=== PATIENT | male | born 1950 | race African-American/Black ===

== ENCOUNTER 2017-08-16 09:26 | Observation (INO) | payer MEDICARE, MEDICAID ==
[~2017-08-16] VITALS: Ht 195.6 cm; Wt 113.5 kg
[~2017-08-16 09:26] MED LIST: ASPI81TA81 PO; CARD240C6 PO; GLUCTAB PO; IBUP-232 PO; PALI1INJ IM; VASE1025 PO; ZOCO40TA PO; [UNRECOGNIZED DRUG - OTHER]
[2017-08-16 09:30] VITALS: BP 193/93; PULSE 90; RESP 16; TEMP 98.4; O2SAT 97
[2017-08-16] MEDS ORDERED: LORazepam 1 MG TAB PO ONE (09:45)
[2017-08-16] MEDS ORDERED: HALOPERIDOL 10 MG TAB PO ONE (09:45)
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
[2017-08-16 10:05] LABS: AUTOMATED NEUTROPHIL # 4.5 TH/MM3 (1.8-7.7); BASOPHIL % 0.3 % (0.0-2.0); EOSINOPHIL % 0.7 % (0.0-4.0); HEMATOCRIT 36.6 % (39.0-51.0); HEMOGLOBIN 12.6 GM/DL (13.0-17.0); LYMPH % 13.6 % (9.0-44.0); LYMPHOCYTE # 0.8 TH/MM3 (1.0-4.8); MEAN CELL VOLUME 92.5 FL (80.0-100.0); MEAN CORPUSCULAR HEMOGLOBIN 31.9 PG (27.0-34.0); MEAN CORPUSCULAR HGB CONC 34.5 % (32.0-36.0); MEAN PLATELET VOLUME 6.6 FL (7.0-11.0); MONO % 8.9 % (0.0-8.0); MONOCYTE # 0.5 TH/MM3 (0-0.9); NEUT % 76.5 % (16.0-70.0); PLATELET COUNT 304 TH/MM3 (150-450); RED BLOOD COUNT 3.96 MIL/MM3 (4.50-5.90); RED CELL DISTRIBUTION WIDTH 13.4 % (11.6-17.2); WHITE BLOOD COUNT 5.9 TH/MM3 (4.0-11.0)
[2017-08-16 10:10] VITALS: BP 131/67; PULSE 119
[2017-08-16 10:12] VITALS: BP 166/90; PULSE 118
[2017-08-16 10:21] LABS: ALBUMIN 3.9 GM/DL (3.4-5.0); AST (GOT) 139 U/L (15-37); BICARBONATE 25.6 MEQ/L (21.0-32.0); BLOOD UREA NITROGEN 13 MG/DL (7-18); CALCIUM 9.1 MG/DL (8.5-10.1); CHLORIDE 90 MEQ/L (98-107); CREATININE 1.04 MG/DL (0.60-1.30); GLOMERULAR FILTRATION RATE 86 ML/MIN (>89); GLUCOSE,RANDOM 126 MG/DL (74-106); SODIUM (NA) 125 MEQ/L (136-145)
[2017-08-16 10:22] LABS: ALT (GPT) 55 U/L (12-78)
[2017-08-16 10:24] LABS: ALKALINE PHOSPHATASE 80 U/L (45-117); TOTAL BILIRUBIN ADULT 0.7 MG/DL (0.2-1.0); TOTAL PROTEIN 7.6 GM/DL (6.4-8.2)
[2017-08-16] MEDS ORDERED: SODIUM CHLOR 0.9% 1000 ML INJ 1,000 ML IV SCH (11:02)
--- NOTE | 2017-08-16 11:07 | PD ---
Physical Exam Date Seen by Provider: Aug 16, 2017 Time Seen by Provider: 11:00 Narrative This patient presents voluntarily for treatment of psychiatric problems. He has a history of paranoid schizophrenia. He is hearing voices. Data Data Last Documented VS Vital Signs Date Time Temp Pulse Resp B/P (MAP) Pulse Ox O2 Delivery O2 Flow Rate FiO2 08/16/17 10:12 118 166/90 (115) 08/16/17 09:30 98.4 16 97 Orders Orders Complete Blood Count With Diff (08/16/17 09:37) Comprehensive Metabolic Panel (08/16/17 09:37) Psych Screen (08/16/17 09:37) Drug Screen, Random Urine (08/16/17 09:37) Alcohol (Ethanol) (08/16/17 09:37) Lorazepam (Ativan) (08/16/17 09:45) Haloperidol (Haldol) (08/16/17 09:45) Electrocardiogram (08/16/17 ) Diet Regular Basic (08/16/17 Lunch) Iv Access Insert/Monitor (08/16/17 11:02) Ecg Monitoring (08/16/17 11:02) Oximetry (08/16/17 11:02) Sodium Chlor 0.9% 1000 Ml Inj (Ns 1000 M (08/16/17 11:02) Sodium Chloride 0.9% Flush (Ns Flush) (08/16/17 11:15) Labs Laboratory Tests Test 08/16/17 09:45 White Blood Count 5.9 TH/MM3 Red Blood Count 3.96 MIL/MM3 Hemoglobin 12.6 GM/DL Hematocrit 36.6 % Mean Corpuscular Volume 92.5 FL Mean Corpuscular Hemoglobin 31.9 PG Mean Corpuscular Hemoglobin Concent 34.5 % Red Cell Distribution Width 13.4 % Platelet Count 304 TH/MM3 Mean Platelet Volume 6.6 FL Neutrophils (%) (Auto) 76.5 % Lymphocytes (%) (Auto) 13.6 % Monocytes (%) (Auto) 8.9 % Eosinophils (%) (Auto) 0.7 % Basophils (%) (Auto) 0.3 % Neutrophils # (Auto) 4.5 TH/MM3 Lymphocytes # (Auto) 0.8 TH/MM3 Monocytes # (Auto) 0.5 TH/MM3 Eosinophils # (Auto) 0.0 TH/MM3 Basophils # (Auto) 0.0 TH/MM3 CBC Comment DIFF FINAL Differential Comment Blood Urea Nitrogen 13 MG/DL Creatinine 1.04 MG/DL Random Glucose 126 MG/DL Total Protein 7.6 GM/DL Albumin 3.9 GM/DL Calcium Level 9.1 MG/DL Alkaline Phosphatase 80 U/L Aspartate Amino Transf (AST/SGOT) 139 U/L Alanine Aminotransferase (ALT/SGPT) 55 U/L Total Bilirubin 0.7 MG/DL Sodium Level 125 MEQ/L Potassium Level 4.4 MEQ/L Chloride Level 90 MEQ/L Carbon Dioxide Level 25.6 MEQ/L Anion Gap 9 MEQ/L Estimat Glomerular Filtration Rate 86 ML/MIN Ethyl Alcohol Level LESS THAN 3 MG/DL MDM Supervised Visit with PATRICIA: Yes Narrative Course I, Dr. Cardenas, have reviewed the advance practice practitioner's documentation and am in agreement, met with the patient face to face, made the diagnosis, and the medical decision making was done by me. *My assessment and Findings: This patient has been singing various songs. He does not appear to be in any distress. Unfortunately, he is hyponatremic which precludes him from being cleared medically for psychiatric evaluation. CBC & BMP Diagram 08/16/17 09:45 Total Protein 7.6, Albumin 3.9, Calcium Level 9.1, Alkaline Phosphatase 80, Aspartate Amino Transf (AST/SGOT) 139 H, Alanine Aminotransferase (ALT/SGPT) 55 , Total Bilirubin 0.7 Please see Kannan Dockery PA-C's note for results of laboratory and radiographic evaluation, ED course, final diagnosis and disposition Condition: Stable Mary Beth Cardenas MD Aug 16, 2017 11:07
[2017-08-16] MEDS ORDERED: SODIUM CHLORIDE 0.9% FLUSH 10 ML FLUSH IV FLUSH PRN ×2 (11:15→12:30)
[2017-08-16] MEDS ORDERED: ENALAPRIL HYDROCHLOROTHIAZIDE PO SCH (12:15)
[2017-08-16] MEDS ORDERED: cloNIDine HCL 0.1 MG TAB PO PRN (12:30)
[2017-08-16] MEDS ORDERED: NALOXONE HCL 0.4 MG/ML AMP IV PUSH PRN (12:30)
[2017-08-16] MEDS ORDERED: ACETAMINOPHEN 325 MG TAB PO PRN ×2 (12:30)
[2017-08-16] MEDS ORDERED: GLUCAGON 1 MG/ML VIAL OTHER PRN (12:45)
[2017-08-16] MEDS ORDERED: DEXTROSE 50% IN WATER 50 ML VIAL(D50) IV PUSH PRN (12:45)
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
[2017-08-16] MEDS: DILTIAZEM-CD 240 MG CAP ER PO SCH (13:52)
[2017-08-16] MEDS: ENALAPRIL MALEATE 10 MG TAB PO SCH (13:54)
--- NOTE | 2017-08-16 14:32 | EKG ---
Date Performed: 08/16/2017 Time Performed: 10:10:26 PTAGE: 67 years EKG: Sinus rhythm POSSIBLE LEFT ATRIAL ENLARGEMENT NONSPECIFIC T-WAVE ABNORMALITY BORDERLINE ECG Compared to PREVIOUS TRACING , sinus rate has slowed. PREVIOUS TRACIN02/26/2008 22.07 DOCTOR: Brian Coats Interpretating Date/Time 08/16/2017 14:31:07
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
[2017-08-16 16:13] VITALS: BP 128/63; PULSE 68; RESP 18; TEMP 98.3; O2SAT 95
[2017-08-16] MEDS: INSULIN ASPART SUPPLEMENTAL SCALE SQ SCH ×2 (17:00→20:34)
[2017-08-16 20:30] VITALS: BP 141/67; PULSE 91; RESP 18; O2SAT 95
[2017-08-16] MEDS: SODIUM CHLORIDE 0.9% FLUSH 10 ML FLUSH IV FLUSH SCH (20:34)
[2017-08-16] MEDS ORDERED: PRAVASTATIN SOD 80 MG TAB PO SCH (21:00)
[2017-08-16] MEDS ORDERED: LORazepam 2 MG TAB PO ONE (23:45)
[2017-08-17 06:44] VITALS: BP 152/80; PULSE 79; RESP 16; TEMP 98.1; O2SAT 96
[2017-08-17] MEDS: INSULIN ASPART SUPPLEMENTAL SCALE SQ SCH ×2 (08:00→12:00)
[2017-08-17] MEDS: DILTIAZEM-CD 240 MG CAP ER PO SCH (08:47)
[2017-08-17] MEDS: ENALAPRIL MALEATE 10 MG TAB PO SCH (08:47)
[2017-08-17] MEDS: SODIUM CHLORIDE 0.9% FLUSH 10 ML FLUSH IV FLUSH SCH (08:48)
[2017-08-17] MEDS ORDERED: DILTIAZEM-CD 240 MG CAP ER PO SCH (09:00)
[2017-08-17] MEDS ORDERED: ASPIRIN EC 81 MG TABEC PO SCH (09:00)
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
--- NOTE | 2017-08-17 09:15 | HHI.DCPOC ---
Discharge Care Plan Diagnosis: (1) Hyponatremia (2) Psychosis (3) Hypertension (4) Schizophrenia Goals to Promote Your Health * To prevent worsening of your condition and complications * To maintain your health at the optimal level Directions to Meet Your Goals Take your medications as prescribed Follow your dietary instruction Follow activity as directed Keep your appointments as scheduled Take your immunizations and boosters as scheduled If your symptoms worsen call your PCP, if no PCP go to Urgent Care Center or Emergency Room Smoking is Dangerous to Your Health. Avoid second hand smoke Call the 24-hour hour crisis hotline for domestic abuse at Talisha Lenz Aug 17, 2017 09:15
[2017-08-17] MEDS ORDERED: NICOTINE 21 MG/24 HR PATCH T-DERMAL SCH (09:30)
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
[2017-08-17] MEDS ORDERED: HALOPERIDOL LACTATE 5 MG/ML AMP IV PUSH ONE (09:45)
--- NOTE | 2017-08-17 11:42 | HHI.PYPN ---
Subjective Remarks Patient was seen today for psychiatric reevaluation. Chart review. Case was discussed with nurse in charge and also with Dr. Cox. On psychiatric evaluation the patient is agitated, naked from waist up, requesting to leave the hospital "because you're not my doctor in I need to go to [facility]". Patient is very disorganized, he seems to be guarded and paranoid, with James loosening of associations, but he was able to respond to verbal de-escalation. As per nurse in charge, the patient last night had to be medicated because he was very paranoid, wanting to leave the hospital, became aggressive and was threatening to go to others patient is room. Review of Systems Psychiatric: COMPLAINS OF: Confusion, Delusions Except as stated in HPI: all other systems reviewed are Neg Mental Status Examination Appearance: Appropriate Consciousness: Alert Orientation: x4 Motor Activity: Normal gait Speech: Unremarkable Language: Adequate Fund of Knowledge: Adequate Attention and Concentration: Adequate Memory: Unremarkable Mood: Angry Affect: Flat Thought Process & Associations: Loose associations Thought Content: Bizarre thinking, Hallucinations Hallucination Type: Auditory, Visual Delusion Type: None Suicidal Ideation: No Suicidal Plan: No Suicidal Intention: No Homicidal Ideation: No Homicidal Plan: No Homicidal Intention: No Insight: Poor Judgment: Poor Results Vitals/IOs Vital Signs Date Time Temp Pulse Resp B/P (MAP) Pulse Ox O2 Delivery O2 Flow Rate FiO2 08/17/17 06:44 98.1 79 16 152/80 (104) 96 Intake and Output 08/17/17 08/17/17 08/18/17 08:00 16:00 00:00 Intake Total 472 ml Balance 472 ml Assessment & Plan Problem List: (1) Schizophrenia ICD Codes: F20.9 - Schizophrenia, unspecified Assessment & Plan: Patient will be admitted in psychiatry for stabilization and safety. Collateral information is is still pending. We'll start Invega 3 mg daily. Will order Haldol 5 mg IM every 8 hours when necessary aggressive behavior and agitation Assessment & Plan Estimated LOS: days Justification for Cont. Inpt. Patient is acutely psychotic Rickie Batista MD Aug 17, 2017 11:42
[2017-08-17] MEDS ORDERED: HALOPERIDOL LACTATE 5 MG/ML AMP IM PRN (11:45)
[2017-08-17 11:52] LABS: AUTOMATED NEUTROPHIL # 3.5 TH/MM3 (1.8-7.7); BASOPHIL % 0.7 % (0.0-2.0); EOSINOPHIL # 0.2 TH/MM3 (0-0.4); EOSINOPHIL % 2.9 % (0.0-4.0); HEMOGLOBIN 11.6 GM/DL (13.0-17.0); LYMPH % 18.1 % (9.0-44.0); LYMPHOCYTE # 0.9 TH/MM3 (1.0-4.8); MEAN CELL VOLUME 92.7 FL (80.0-100.0); MEAN CORPUSCULAR HEMOGLOBIN 31.7 PG (27.0-34.0); MEAN CORPUSCULAR HGB CONC 34.2 % (32.0-36.0); MEAN PLATELET VOLUME 6.4 FL (7.0-11.0); MONO % 10.5 % (0.0-8.0); MONOCYTE # 0.5 TH/MM3 (0-0.9); NEUT % 67.8 % (16.0-70.0); PLATELET COUNT 279 TH/MM3 (150-450); RED BLOOD COUNT 3.67 MIL/MM3 (4.50-5.90); RED CELL DISTRIBUTION WIDTH 13.2 % (11.6-17.2); WHITE BLOOD COUNT 5.2 TH/MM3 (4.0-11.0)
[2017-08-17 12:22] LABS: ALBUMIN 3.4 GM/DL (3.4-5.0); AST (GOT) 120 U/L (15-37); BICARBONATE 27.1 MEQ/L (21.0-32.0); BLOOD UREA NITROGEN 10 MG/DL (7-18); CALCIUM 8.7 MG/DL (8.5-10.1); CHLORIDE 99 MEQ/L (98-107); CREATININE 0.97 MG/DL (0.60-1.30); GLOMERULAR FILTRATION RATE 94 ML/MIN (>89); GLUCOSE,RANDOM 145 MG/DL (74-106); SODIUM (NA) 131 MEQ/L (136-145)
[2017-08-17 12:23] LABS: ALT (GPT) 52 U/L (12-78)
[2017-08-17 12:25] LABS: ALKALINE PHOSPHATASE 74 U/L (45-117); TOTAL BILIRUBIN ADULT 0.4 MG/DL (0.2-1.0); TOTAL PROTEIN 6.8 GM/DL (6.4-8.2)
[2017-08-18] MEDS ORDERED: PALIPERIDONE ER 3 MG TAB PO SCH (09:00)
[2017-08-18] MEDS ORDERED: REMOVE OLD PATCH T-DERMAL SCH (09:00)
== END 2017-08-17 14:30 ==
LOC: NEPD 09:26 → NEDA 11:39 → NEPHCDU 13:09 → H270 08-17 14:20
PROVIDERS: ADMIT Hospitalist; ATTEND Psychiatry & Neurology Psychiatry
DX: F20.0 Paranoid schizophrenia (principal); E87.1 Hypo-osmolality and hyponatremia; I10 Essential (primary) hypertension; E78.5 Hyperlipidemia, unspecified; F17.210 Nicotine dependence, cigarettes, uncomplicated; E11.9 Type 2 diabetes mellitus without complications; E66.9 Obesity, unspecified; Z79.84 Long term (current) use of oral hypoglycemic drugs; R74.0 Nonspecific elevation of levels of transaminase and lactic acid dehydrogenase [LDH]; F31.9 Bipolar disorder, unspecified; Z79.899 Other long term (current) drug therapy; D64.9 Anemia, unspecified; R94.31 Abnormal electrocardiogram [ECG] [EKG]
CPT/HCPCS: 80053; 80307; 82948; 85025; 93005; 96361; 96374; 99285; G0378; J1630; J7030

== ENCOUNTER 2017-08-17 14:58 | Inpatient (IN) | payer OTHER, MEDICARE ==
[~2017-08-17] VITALS: Ht 185.4 cm; Wt 119.6 kg
[2017-08-17 14:25] VITALS: BP 147/70; PULSE 80; RESP 20; TEMP 98; O2SAT 100
[2017-08-17] MEDS: DILTIAZEM-CD 240 MG CAP ER PO SCH (17:00)
[2017-08-17] MEDS: ASPIRIN EC 81 MG TABEC PO SCH (17:00)
[2017-08-17] MEDS ORDERED: LORazepam 0.5 MG TAB PO PRN (17:15)
[2017-08-17] MEDS ORDERED: ALUMINUM/MAGNESIUM/SIMETH 30 ML CUP PO PRN (17:15)
[2017-08-17] MEDS ORDERED: ACETAMINOPHEN 325 MG TAB PO PRN (17:15)
[2017-08-17] MEDS ORDERED: LORazepam 2 MG/ML VIAL IM PRN ×2 (17:15)
[2017-08-17] MEDS ORDERED: MAGNESIUM HYDROXIDE SUSP 30 ML CUP PO PRN (17:15)
[2017-08-17 18:14] VITALS: BP 117/78; PULSE 80; RESP 16; TEMP 99.1; O2SAT 96
[2017-08-17] MEDS: metFORMIN HCL 500 MG TAB PO SCH (20:07)
[2017-08-17] MEDS: LORazepam 1 MG TAB PO PRN (22:59)
[2017-08-18 05:48] VITALS: BP 175/81; PULSE 81; RESP 17; TEMP 98.1; O2SAT 95
[2017-08-18] MEDS: metFORMIN HCL 500 MG TAB PO SCH ×2 (08:26→20:39)
[2017-08-18] MEDS: ENALAPRIL MALEATE 5 MG TAB PO SCH (08:26)
[2017-08-18] MEDS: ASPIRIN EC 81 MG TABEC PO SCH (08:26)
[2017-08-18] MEDS: DILTIAZEM-CD 240 MG CAP ER PO SCH (08:26)
[2017-08-18] MEDS: NICOTINE 21 MG/24 HR PATCH T-DERMAL SCH (08:27)
[2017-08-18] MEDS ORDERED: HYDROCHLOROTHIAZIDE 25 MG TAB PO SCH (09:00)
[2017-08-18 10:52] LABS: BICARBONATE 27.4 MEQ/L (21.0-32.0); BLOOD UREA NITROGEN 8 MG/DL (7-18); CALCIUM 8.9 MG/DL (8.5-10.1); CHLORIDE 99 MEQ/L (98-107); CHOLESTEROL 141 MG/DL (120-200); CHOLESTEROL/ HDL RATIO 3.17 RATIO; CREATININE 1.02 MG/DL (0.60-1.30); GLOMERULAR FILTRATION RATE 88 ML/MIN (>89); GLUCOSE,RANDOM 157 MG/DL (74-106); HDL CHOLESTEROL 44.4 MG/DL (40.0-60.0); LDL CHOLESTEROL 79 MG/DL (0-99); SODIUM (NA) 132 MEQ/L (136-145); TRIGLYCERIDES 90 MG/DL (42-150)
[2017-08-18] MEDS ORDERED: hydrOXYzine HCL 50 MG TAB PO PRN (14:30)
--- NOTE | 2017-08-18 14:45 | HHI.HP ---
Provisional Diagnosis Admission Date Aug 17, 2017 at 14:58 [place]. Schizophrenia chronic paranoid type F 20.0 Certification of Person's Competence To Provide Express and Informed Consent I have personally examined Minesh Duron , a person being served at [facility] on, Aug 18, 2017 14:32. Express and informed consent means consent voluntarily given in writing, by a competent person, after sufficient explanation and disclosure of the subject matter involved to enable the person to make a knowing and willful decision without any element of force, fraud, deceit, duress, or other form of constraint or coercion. This person is 18 years of age or older, is not now known to be incompetent to consent to treatment with a guardian advocate, and does not have a health care surrogate or proxy currently making medical treatment decisions. I have found this person to be one of the following: [xxx] Competent to provide express and informed consent, as defined above, for voluntary admission to this facility and is competent to provide express and informed consent for treatment. He/she has the consistent capacity to make well reasoned, willful, and knowing decisions concerning his or her medical or mental health treatment. The person fully and consistently understands the purpose of the admission for examination/placement and is fully capable of personally exercising all rights assured [place] Incompetent to provide express and informed consent to voluntary admission, and this is incompetent to provide express and informed consent to treatment. The person must be transferred to involuntary status and a petition for a guardian advocate filed with the Circuit Court. [] Refusing to provide express and informed consent to voluntary admission but is competent to provide express and informed consent for treatment. The person must be discharged or transferred to involuntary status. Form shall be completed within 24 hours of a person's arrival at the receiving facility and filed in the clinical record of each person: 1. Admitted on a voluntary basis 2. Permitted to provide express and informed consent to his/her own treatment 3. Allowed to transfer from involuntary to voluntary status 4. Prior to permitting a person to consent to his or her own treatment after having been previously found incompetent to consent to treatment. History of Present Illness Capacity: Has Capacity Psych Chief Complaint: increase auditory or visual hallucinations noncompliance medication HPI A shunt is a 67-year-old Afro-Monegasque male well-known to us from multiple prior contacts when back more than a decade. He is now a compliant with the fact team through [employer] act. Patient was admitted to [facility] on 08/16/17 under visit [id number] for treatment of hyponatremia now the metabolic issues. He is medically cleared, he was seen in consultation with Dr. Willoughby who recommended admission. Patient admitted to this unit. Patient seen on the unit with nurse Chely. Patient is alert fairly well oriented calm and cooperative if somewhat intrusive and loud and at times vaguely confusing. He did recognize me from many years ago. He states is a member of the fact team who monitor him daily. He says is an overall cooperative with medication. He states over the past few weeks she has had increase auditory or visual hallucinations of a somewhat threatening nature is somewhat hyper adventism today in the paranoid manner. Denies alcohol use is vague about use of marijuana. In any event he does know where he is. He states is willing to be cooperative with his medication and treatment. And would request to sign voluntary. At this time feel he has the capacity to sign voluntary thus I'll lift [employer] act along the sign voluntary. We will counselor contact the fact team to get current medication list. Review of Systems Constitutional: DENIES: Diaphoretic episodes, Fatigue, Fever, Weight gain, Weight loss, Chills, Dizziness, Change in appetite, Night Sweats Endocrine: DENIES: Heat/cold intolerance, Polydipsia, Polyuria, Polyphagia Eyes: DENIES: Blurred vision, Diplopia, Eye inflammation, Eye pain, Vision loss , Photosensitivity, Double Vision Ears, nose, mouth, throat: DENIES: Tinnitus, Hearing loss, Vertigo, Nasal discharge, Oral lesions, Throat pain, Hoarseness, Ear Pain, Running Nose, Epistaxis, Sinus Pain, Toothache, Odynophagia Respiratory: DENIES: Apneas, Cough, Snoring, Wheezing, Hemoptysis, Sputum production, Shortness of breath Cardiovascular: DENIES: Chest pain, Palpitations, Syncope, Dyspnea on Exertion , PND, Lower Extremity Edema, Orthopnea, Claudication Gastrointestinal: DENIES: Abdominal pain, Black stools, Bloody stools, Constipation, Diarrhea, Nausea, Vomiting, Difficulty Swallowing, Anorexia Genitourinary: DENIES: Sexual dysfunction, Urinary frequency, Urinary incontinence, Urgency, Hematuria, Dysuria, Nocturia, Penile Discharge, Testicular Pain, Testicular Swelling Musculoskeletal: DENIES: Joint pain, Muscle aches, Stiffness, Joint Swelling, Back pain, Neck pain Integumentary: DENIES: Abnormal pigmentation, Nail changes, Pruritus, Rash Hematologic/lymphatic: DENIES: Bruising, Lymphadenopathy Immunologic/allergic: DENIES: Eczema, Urticaria Neurologic: DENIES: Abnormal gait, Headache, Localized weakness, Paresthesias, Seizures, Speech Problems, Tremor, Poor Balance Psychiatric: COMPLAINS OF: Anxiety, Confusion, Hallucinations Past Psych History Psychological trauma history Difficult to ascertain due to patient psychosis Violence risk - others (6 mos) Moderate Violence risk - self (6 mos) Low Substance Abuse History Drugs/Alcohol past 12 months Denies Past Family Social History Coded Allergies: trihexyphenidyl (Unverified Allergy, Severe, 08/16/17) Active Scripts [true track strips] No Conflict Check, BOX .ROUTE DIRECTED, #1 6 Refills Measure glucose 30 min prior to breakfast and 2 hours prior to bedtime. Prov:Ruben Keene MD, R3 07/15/17 Enalapril-Hydrochlorothiazide (Vaseretic) 10-25 Mg Tab, 1 TAB PO DAILY, #60 TAB 6 Refills Prov:Ruben Keene MD, R3 07/01/17 Diltiazem CD 24 HR (Cardizem CD 24 HR) 240 Mg Caper, 240 MG PO DAILY, #60 CAP 4 Refills Prov:Ruben Keene MD, R3 04/24/17 Metformin ER (Glucophage XR) 500 Mg Kriss, 500 MG PO BID for Blood Sugar Management, #120 TAB 3 Refills With evening meal Prov:Ruben Keene MD, R3 04/02/17 Ibuprofen (Ibuprofen) 600 Mg Tab, 600 MG PO Q6H Y for HEADACHE, #40 TAB 0 Refills Prov:Tiffany Gandara MD 12/05/[address] (Aspir-81) 81 Mg Tabdr, 81 MG PO DAILY, #30 TAB 11 Refills Prov:Tiffany Gandara MD 10/30/16 Discontinued Reported Medications Paliperidone Palmitate Inj (Invega Trinza Inj) Unknown Strength Inj, IM Q90D for Schizophrenia, #1 VIAL 0 Refills 12/02/16 Discontinued Scripts Simvastatin (Zocor) 40 Mg Tab, 40 MG PO HS for Cholesterol Management, #30 TAB 11 Refills Prov:Tiffany Gandara MD 10/30/16 Current Medications Medications (Trade) Dose Ordered Sig/Los Route Start Time Stop Time Status Last Admin (Ecotrin Ec) 81 mg DAILY PO 08/17/17 17:00 08/18/17 08:26 (Cardizem Cd) 240 mg DAILY PO 08/17/17 17:00 08/18/17 08:26 (Vasotec) 10 mg DAILY PO 08/18/17 09:00 08/18/17 08:26 (Glucophage) 500 mg BID PO 08/17/17 21:00 08/18/17 08:26 (Hydrodiuril) 25 mg DAILY PO 08/18/17 09:00 08/18/17 08:25 (Ativan) 1 mg Q6H PRN PO 08/17/17 17:15 08/17/17 22:59 (Ativan Inj) 1 mg Q6H PRN IM 08/17/17 17:15 (Ativan) 0.5 mg Q12H PRN PO 08/17/17 17:15 (Ativan Inj) 0.5 mg Q12H PRN IM 08/17/17 17:15 (Tylenol) 650 mg Q4H PRN PO 08/17/17 17:15 (Milk Of Magnesia Liq) 30 ml DAILY PRN PO 08/17/17 17:15 (Mag-Al Plus Susp Liq) 30 ml Q6H PRN PO 08/17/17 17:15 (Habitrol 21 Mg Patch.24 Hr) 1 patch DAILY T-DERMAL 08/18/17 09:00 08/18/17 08:27 (Atarax) 50 mg Q6H PRN PO 08/18/17 14:30 UNV Family Psych History Difficult to ascertain due to patient psychosis Social History Patient single lives in his own apartment his community support by the fact team Patient's Strengths (min. 2) Patient verbal label axis health care Physical Exam Patient medically cleared hospital visit [phone], depressed type patient no acute distress, no respiratory distress, no complex abdominal pain, overall 4 extremities without difficulty Vital Signs Vital Signs Date Time Temp Pulse Resp B/P (MAP) Pulse Ox O2 Delivery O2 Flow Rate FiO2 08/18/17 05:48 98.1 81 17 175/81 (112) 95 I/O 08/18/17 08/18/17 08/19/17 08:00 16:00 00:00 Intake Total 100 ml Balance 100 ml Lab Results Test 08/18/17 09:40 Blood Urea Nitrogen 8 MG/DL Creatinine 1.02 MG/DL Random Glucose 157 MG/DL Calcium Level 8.9 MG/DL Sodium Level 132 MEQ/L Potassium Level 3.8 MEQ/L Chloride Level 99 MEQ/L Carbon Dioxide Level 27.4 MEQ/L Anion Gap 6 MEQ/L Estimat Glomerular Filtration Rate 88 ML/MIN Triglycerides Level 90 MG/DL Cholesterol Level 141 MG/DL LDL Cholesterol 79 MG/DL HDL Cholesterol 44.4 MG/DL Cholesterol/HDL Ratio 3.17 RATIO Mental Status Examination Appearance: Appropriate, Disheveled Consciousness: Alert Orientation: Person, Place, Date/Time, Situation Motor Activity: Normal gait Speech: Pressured, Rapid, Speech impediment (mildly dysarthric) Language: Adequate Fund of Knowledge: Adequate Attention and Concentration: Other (fair) Memory: Impaired Mood: Oppositional, Anxious, Irritable Affect: Other (increase range and intensity) Thought Process & Associations: Loose associations Thought Content: Bizarre thinking Hallucination Type: Auditory (vague with me today), Visual (vague with me today ) Delusion Type: Bizarre Suicidal Ideation: No Suicidal Plan: No Suicidal Intention: No Homicidal Ideation: No Homicidal Plan: No Homicidal Intention: No Insight: Poor Judgment: Poor Assessment & Plan Problem List: (1) Schizophrenia ICD Codes: F20.9 - Schizophrenia, unspecified Assessment & Plan Estimated LOS: 5-7 days this time patient does meet criteria from previous psychiatric hospitalization to address this decompensation of his chronic mental illness. Though I do feel he has the capacity sign voluntary. I know this patient for over 10 years he recognizes me and is willing to agreed to staying here voluntarily first long as it takes to get better. We will the nurse contact the fact team. List of patient's current medications Discharge Planning Return to his apartment and follow-up with the fact team Request HC Surrog/Guard Advoc?: No Problem Qualifiers (1) Schizophrenia: Qualified Codes: F20.0 - Paranoid schizophrenia Yanick Tolbert MD Aug 18, 2017 14:45
[2017-08-18 16:38] LABS: HEMOGLOBIN A1C 7.8 % (4.3-6.0)
[2017-08-18 17:10] VITALS: BP 148/65; PULSE 85; RESP 17; TEMP 98.6; O2SAT 95
[2017-08-18 17:45] VITALS: BP 148/65; PULSE 85; RESP 17; TEMP 98.6; O2SAT 95
[2017-08-18] MEDS: POVIDONE IODINE 10% SOLN 480 ML BTL TOPICAL SCH (17:45)
[2017-08-18] MEDS: FUROSEMIDE 40 MG TAB PO SCH (17:45)
[2017-08-18] MEDS: SILVER SULFADIAZINE 1% CR 400 GM JAR TOPICAL SCH (17:45)
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
[2017-08-18] MEDS: REMOVE OLD NICODERM (NICOTINE) PATCH T-DERMAL SCH (21:00)
[2017-08-19 05:39] VITALS: BP 165/82; PULSE 82; RESP 18; TEMP 97.9; O2SAT 98
--- NOTE | 2017-08-19 08:56 | HHI.PYPN ---
Subjective Chief Complaint: increase auditory or visual hallucinations noncompliance medication Remarks Patient seen today in dayroom with nurse Sushma, chart reviewed, patient compliant medications. Patient continues intrusive intense somewhat elevated mood. Patient does show some posturing with slight extension of his head with perhaps some vague noted movements around his buccolingual area. This may be in early perhaps chronic mild tardive movements. I did place a call this morning into the fact team to get a list of his current medications. I'm awaiting the return call. Otherwise patient is not been any significant behavioral problem. Review of Systems Except as stated in HPI: all other systems reviewed are Neg Mental Status Examination Appearance: Appropriate, Disheveled Consciousness: Alert Orientation: Person, Place, Date/Time, Situation Motor Activity: Normal gait Speech: Pressured, Rapid, Speech impediment (mildly dysarthric) Language: Adequate Fund of Knowledge: Adequate Attention and Concentration: Other (fair) Memory: Impaired Mood: Oppositional, Anxious, Irritable Affect: Other (increase range and intensity) Thought Process & Associations: Loose associations Thought Content: Bizarre thinking Hallucination Type: Auditory (vague with me today), Visual (vague with me today ) Delusion Type: Bizarre Suicidal Ideation: No Suicidal Plan: No Suicidal Intention: No Homicidal Ideation: No Homicidal Plan: No Homicidal Intention: No Insight: Poor Judgment: Poor Results Labs Test 08/18/17 09:40 Blood Urea Nitrogen 8 MG/DL Creatinine 1.02 MG/DL Random Glucose 157 MG/DL Calcium Level 8.9 MG/DL Sodium Level 132 MEQ/L Potassium Level 3.8 MEQ/L Chloride Level 99 MEQ/L Carbon Dioxide Level 27.4 MEQ/L Anion Gap 6 MEQ/L Estimat Glomerular Filtration Rate 88 ML/MIN Hemoglobin A1c 7.8 % Triglycerides Level 90 MG/DL Cholesterol Level 141 MG/DL LDL Cholesterol 79 MG/DL HDL Cholesterol 44.4 MG/DL Cholesterol/HDL Ratio 3.17 RATIO Vitals/IOs Vital Signs Date Time Temp Pulse Resp B/P (MAP) Pulse Ox O2 Delivery O2 Flow Rate FiO2 08/19/17 05:39 97.9 82 18 165/82 (109) 98 Intake and Output 08/19/17 08/19/17 08/20/17 08:00 16:00 00:00 Intake Total 0 ml Balance 0 ml Assessment & Plan Problem List: (1) Schizophrenia ICD Codes: F20.9 - Schizophrenia, unspecified Assessment & Plan Estimated LOS: days patient continues intense intrusive somewhat vigilant and grandiose and some ways. The mild motor movement also noted. Continue to await response from fact team related to his scheduled psychotropic medications Justification for Cont. Inpt. At this time patient will decompensate if placed in the lower level of care Discharge Planning Probably return to his apartment with follow-up with the fact team Request HC Surrog/Guard Advoc?: No Problem Qualifiers (1) Schizophrenia: Qualified Codes: F20.0 - Paranoid schizophrenia Yanick Tolbert MD Aug 19, 2017 08:56
[2017-08-19] MEDS: NICOTINE 21 MG/24 HR PATCH T-DERMAL SCH (09:00)
[2017-08-19] MEDS: SILVER SULFADIAZINE 1% CR 400 GM JAR TOPICAL SCH (09:00)
[2017-08-19] MEDS: POVIDONE IODINE 10% SOLN 480 ML BTL TOPICAL SCH (09:00)
[2017-08-19] MEDS: DILTIAZEM-CD 240 MG CAP ER PO SCH (09:00)
[2017-08-19] MEDS: FUROSEMIDE 40 MG TAB PO SCH (09:06)
[2017-08-19] MEDS: ASPIRIN EC 81 MG TABEC PO SCH (09:06)
[2017-08-19] MEDS: metFORMIN HCL 500 MG TAB PO SCH ×2 (09:06→20:14)
[2017-08-19] MEDS: ENALAPRIL MALEATE 5 MG TAB PO SCH (09:09)
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
[2017-08-19] MEDS ORDERED: DEXTROSE 50% IN WATER 50 ML VIAL(D50) IV PUSH PRN (14:45)
[2017-08-19] MEDS ORDERED: GLUCAGON 1 MG/ML VIAL OTHER PRN (14:45)
[2017-08-19] MEDS: INSULIN ASPART SUPPLEMENTAL SCALE SQ SCH ×3 (16:34→20:20)
[2017-08-19 18:37] VITALS: BP 160/74; PULSE 84; RESP 18; TEMP 98.7; O2SAT 96
[2017-08-19] MEDS: REMOVE OLD NICODERM (NICOTINE) PATCH T-DERMAL SCH (20:24)
[2017-08-20] MEDS: LORazepam 1 MG TAB PO PRN ×2 (02:39→20:03)
[2017-08-20 06:10] VITALS: BP 196/88; PULSE 72; RESP 18; TEMP 97.6; O2SAT 96
[2017-08-20 06:11] VITALS: BP 145/79; PULSE 69
[2017-08-20] MEDS: INSULIN ASPART SUPPLEMENTAL SCALE SQ SCH ×4 (08:00→20:04)
[2017-08-20] MEDS: DILTIAZEM-CD 240 MG CAP ER PO SCH (09:00)
[2017-08-20] MEDS: POVIDONE IODINE 10% SOLN 480 ML BTL TOPICAL SCH (09:00)
[2017-08-20] MEDS: NICOTINE 21 MG/24 HR PATCH T-DERMAL SCH (09:00)
[2017-08-20] MEDS: ENALAPRIL MALEATE 5 MG TAB PO SCH (09:00)
[2017-08-20] MEDS: metFORMIN HCL 500 MG TAB PO SCH ×2 (09:00→20:03)
[2017-08-20] MEDS: FUROSEMIDE 40 MG TAB PO SCH (09:00)
[2017-08-20] MEDS: ASPIRIN EC 81 MG TABEC PO SCH (09:00)
[2017-08-20] MEDS: SILVER SULFADIAZINE 1% CR 400 GM JAR TOPICAL SCH (09:00)
[2017-08-20] MEDS ORDERED: PALIPERIDONE ER 3 MG TAB PO SCH (13:45)
--- NOTE | 2017-08-20 13:50 | HHI.PYPN ---
Subjective Chief Complaint: increase auditory or visual hallucinations noncompliance medication Remarks Patient seen today with nurse Celia, chart review, patient compliant medications. Patient continues somewhat intrusive intense speech somewhat pressured and loud. Attempted to reach the fact team to get his list of current medications and talk to a staff member there it may include Saphris and trends up. We need to verify this. In the meantime I will start patient not invega ER 3 mg daily Review of Systems Except as stated in HPI: all other systems reviewed are Neg Mental Status Examination Appearance: Appropriate, Disheveled Consciousness: Alert Orientation: Person, Place, Date/Time, Situation Motor Activity: Normal gait Speech: Pressured, Rapid, Speech impediment (mildly dysarthric) Language: Adequate Fund of Knowledge: Adequate Attention and Concentration: Other (fair) Memory: Impaired Mood: Oppositional, Anxious, Irritable Affect: Other (increase range and intensity) Thought Process & Associations: Loose associations Thought Content: Bizarre thinking Hallucination Type: Auditory (vague with me today), Visual (vague with me today ) Delusion Type: Bizarre Suicidal Ideation: No Suicidal Plan: No Suicidal Intention: No Homicidal Ideation: No Homicidal Plan: No Homicidal Intention: No Insight: Poor Judgment: Poor Results Vitals/IOs Vital Signs Date Time Temp Pulse Resp B/P (MAP) Pulse Ox O2 Delivery O2 Flow Rate FiO2 08/20/17 06:11 69 145/79 (101) 08/20/17 06:10 97.6 18 96 Assessment & Plan Problem List: (1) Schizophrenia ICD Codes: F20.9 - Schizophrenia, unspecified Assessment & Plan Estimated LOS: days patient continues somewhat grandiose and psychotic, but no significant behavioral problems. Continue to work with fact team has medications verified Justification for Cont. Inpt. At this time patient will decompensate if placed in the lower level of care Discharge Planning To return to his own home follow-up with the fact team Request HC Surrog/Guard Advoc?: No Problem Qualifiers (1) Schizophrenia: Qualified Codes: F20.0 - Paranoid schizophrenia Yanick Tolbert MD Aug 20, 2017 13:50
[2017-08-20] MEDS: REMOVE OLD NICODERM (NICOTINE) PATCH T-DERMAL SCH (20:05)
[2017-08-21 05:34] VITALS: BP 191/88; PULSE 80; RESP 18; TEMP 97.9; O2SAT 99
[2017-08-21] MEDS: INSULIN ASPART SUPPLEMENTAL SCALE SQ SCH ×4 (08:00→20:45)
[2017-08-21] MEDS: DILTIAZEM-CD 240 MG CAP ER PO SCH (08:33)
[2017-08-21] MEDS: PALIPERIDONE ER 3 MG TAB PO SCH (08:33)
[2017-08-21] MEDS: metFORMIN HCL 500 MG TAB PO SCH ×2 (08:33→20:28)
[2017-08-21] MEDS: ENALAPRIL MALEATE 5 MG TAB PO SCH (08:33)
[2017-08-21] MEDS: ASPIRIN EC 81 MG TABEC PO SCH (08:33)
[2017-08-21] MEDS: NICOTINE 21 MG/24 HR PATCH T-DERMAL SCH ×3 (08:34→08:59)
[2017-08-21] MEDS: SILVER SULFADIAZINE 1% CR 400 GM JAR TOPICAL SCH (08:58)
[2017-08-21] MEDS: POVIDONE IODINE 10% SOLN 480 ML BTL TOPICAL SCH (09:00)
--- NOTE | 2017-08-21 09:54 | HHI.PYPN ---
Subjective Chief Complaint: increase auditory or visual hallucinations noncompliance medication Remarks Patient seen in his room with nurse Hyacinth, chart reviewed, patient compliant medications. Also talked yesterday afternoon with the fact Dr. . He anticipates returning the patient to the invega sustena in about 1 month. He realizes the use of the trinza was not effective. For now we will continue the oral invega at 6 mg daily. Patient is also on Saphris though we do not have been on a formulary. Patient is calmer today more focused able to process the above information. If patient continues to improve over the next few days will consider discharge first part of next week to follow-up with the fact team Review of Systems Except as stated in HPI: all other systems reviewed are Neg Mental Status Examination Appearance: Appropriate, Disheveled Consciousness: Alert Orientation: Person, Place, Date/Time, Situation Motor Activity: Normal gait Speech: Pressured, Rapid, Speech impediment (mildly dysarthric) Language: Adequate Fund of Knowledge: Adequate Attention and Concentration: Other (fair) Memory: Impaired Mood: Oppositional, Anxious, Irritable Affect: Other (increase range and intensity) Thought Process & Associations: Loose associations Thought Content: Bizarre thinking Hallucination Type: Auditory (vague with me today), Visual (vague with me today ) Delusion Type: Bizarre Suicidal Ideation: No Suicidal Plan: No Suicidal Intention: No Homicidal Ideation: No Homicidal Plan: No Homicidal Intention: No Insight: Poor Judgment: Poor Results Vitals/IOs Vital Signs Date Time Temp Pulse Resp B/P (MAP) Pulse Ox O2 Delivery O2 Flow Rate FiO2 08/21/17 05:34 97.9 80 18 191/88 (122) 99 Assessment & Plan Problem List: (1) Schizophrenia ICD Codes: F20.9 - Schizophrenia, unspecified Assessment & Plan Estimated LOS: days patient continue psychotic though improving dummies compliant with medications. Does denies suicidality. Does deny voices. Though he appears at times to be responding to internal stimuli Justification for Cont. Inpt. At this time patient decompensated placed on the lower level of care Discharge Planning Returned for his own apartment to follow-up with fact team Request HC Surrog/Guard Advoc?: No Problem Qualifiers (1) Schizophrenia: Qualified Codes: F20.0 - Paranoid schizophrenia Yanick Tolbert MD Aug 21, 2017 09:54
[2017-08-21 10:44] LABS: CALCIUM 9.7 MG/DL (8.5-10.1); CREATININE 1.1 MG/DL (0.60-1.30)
--- NOTE | 2017-08-21 12:20 | PD.TTN ---
Patient Problems 1. Discharge planning 2. Medication compliance 3. Knowledge deficit 4. Lack of coping skills Progress Toward Goals Provider Present: Dr. Logan Tolbert Provider Input: 08/20/2017 - Dr. Tolbert requested patient's medication history from [facility]. Psychiatric Counselors Present: ELENA Hope, MARGARITO Luis Psych Therapist Input: 08/20/2017 - Counselor has left a voice message for patient's [facility] Teletype Installer, Nataly Casper, requesting that she fax patient's current medication list to Dr. tolbert. Group Spec/RT/OT/PAINTER Present: INOCENCIO Napoles Group Spec/RT/OT/PAINTER Input: 08/20/2017 - Patient is intrusive, childlike, and attends select groups. Discharge Plan SMA Patient will be discharged home when stable. He has a renal case manager from [facility], Nataly Casper. Documentation Scribe: MARGARITO Luis Date Resolved: Aug 20, 2017 Joslyn Clifton Aug 21, 2017 12:20
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
[2017-08-21 17:15] VITALS: BP 175/80; PULSE 78; RESP 18; TEMP 99.1; O2SAT 96
[2017-08-21] MEDS: ENALAPRIL MALEATE 10 MG TAB PO SCH (20:28)
[2017-08-21] MEDS: REMOVE OLD NICODERM (NICOTINE) PATCH T-DERMAL SCH (20:49)
[2017-08-22 05:57] VITALS: BP 175/85; PULSE 77; RESP 18; TEMP 98.8; O2SAT 97
[2017-08-22] MEDS: INSULIN ASPART SUPPLEMENTAL SCALE SQ SCH ×4 (07:48→20:52)
[2017-08-22] MEDS: PALIPERIDONE ER 3 MG TAB PO SCH (08:33)
[2017-08-22] MEDS: ASPIRIN EC 81 MG TABEC PO SCH (08:34)
[2017-08-22] MEDS: ENALAPRIL MALEATE 10 MG TAB PO SCH ×2 (08:34→20:54)
[2017-08-22] MEDS: DILTIAZEM-CD 240 MG CAP ER PO SCH (08:34)
[2017-08-22] MEDS: metFORMIN HCL 500 MG TAB PO SCH ×2 (08:34→20:54)
[2017-08-22] MEDS: NICOTINE 21 MG/24 HR PATCH T-DERMAL SCH (09:00)
--- NOTE | 2017-08-22 10:46 | HHI.PYPN ---
Subjective Chief Complaint: increase auditory or visual hallucinations noncompliance medication Remarks Patient seen in day room with nurse Hyacinth, chart reviewed, patient compliant medications. Patient continues somewhat intrusive loud some perseveration on fluid intake. Staff needs to have frequent interventions to limit patient's fluid intake. We attempted to discuss this with him again his need for moderation and fluid intake and cooperation with the staff. He is voicing agreement. Will increase invega to 9 mg daily. And will repeat CMP on Friday Review of Systems Except as stated in HPI: all other systems reviewed are Neg Mental Status Examination Appearance: Appropriate, Disheveled Consciousness: Alert Orientation: Person, Place, Date/Time, Situation Motor Activity: Normal gait Speech: Pressured, Rapid, Speech impediment (mildly dysarthric) Language: Adequate Fund of Knowledge: Adequate Attention and Concentration: Other (fair) Memory: Impaired Mood: Oppositional, Anxious, Irritable Affect: Other (increase range and intensity) Thought Process & Associations: Loose associations Thought Content: Bizarre thinking Hallucination Type: Auditory (vague with me today), Visual (vague with me today ) Delusion Type: Bizarre Suicidal Ideation: No Suicidal Plan: No Suicidal Intention: No Homicidal Ideation: No Homicidal Plan: No Homicidal Intention: No Insight: Poor Judgment: Poor Results Vitals/IOs Vital Signs Date Time Temp Pulse Resp B/P (MAP) Pulse Ox O2 Delivery O2 Flow Rate FiO2 08/22/17 05:57 98.8 77 18 175/85 (115) 97 Assessment & Plan Problem List: (1) Schizophrenia ICD Codes: F20.9 - Schizophrenia, unspecified Assessment & Plan Estimated LOS: days patient remains calm and fairly pleasant with me though he is intrusive with loud voice somewhat rapid and pressured continues show little insight into his need for fluid monitoring. Though he does agree to listen to the staff on that aspect. Will increase invega to 9 mg daily recheck CMP on Friday Justification for Cont. Inpt. At this time patient will decompensate if placed in the lower level of care Discharge Planning Probable return to his own home to follow-up with fact team Request HC Surrog/Guard Advoc?: No Problem Qualifiers (1) Schizophrenia: Qualified Codes: F20.0 - Paranoid schizophrenia Yanick Tolbert MD Aug 22, 2017 10:46
[2017-08-22] MEDS: SILVER SULFADIAZINE 1% CR 400 GM JAR TOPICAL SCH (17:00)
[2017-08-22] MEDS: POVIDONE IODINE 10% SOLN 480 ML BTL TOPICAL SCH (17:00)
[2017-08-22 18:40] VITALS: BP 173/73; PULSE 75; RESP 18; TEMP 98.2; O2SAT 95
[2017-08-22] MEDS: REMOVE OLD NICODERM (NICOTINE) PATCH T-DERMAL SCH (20:55)
[2017-08-22] MEDS: LORazepam 1 MG TAB PO PRN (20:56)
[2017-08-23 06:20] VITALS: BP 156/70; PULSE 85; RESP 16; TEMP 97.2; O2SAT 97
[2017-08-23 06:21] VITALS: BP 145/69
[2017-08-23] MEDS: INSULIN ASPART SUPPLEMENTAL SCALE SQ SCH ×4 (08:00→21:00)
[2017-08-23] MEDS: metFORMIN HCL 500 MG TAB PO SCH ×2 (08:49→21:05)
[2017-08-23] MEDS: ASPIRIN EC 81 MG TABEC PO SCH (08:49)
[2017-08-23] MEDS: DILTIAZEM-CD 240 MG CAP ER PO SCH (08:49)
[2017-08-23] MEDS: PALIPERIDONE ER 3 MG TAB PO SCH (08:49)
[2017-08-23] MEDS: ENALAPRIL MALEATE 10 MG TAB PO SCH ×2 (08:50→21:05)
[2017-08-23] MEDS: NICOTINE 21 MG/24 HR PATCH T-DERMAL SCH ×2 (08:53→09:00)
[2017-08-23] MEDS: POVIDONE IODINE 10% SOLN 480 ML BTL TOPICAL SCH (08:53)
[2017-08-23] MEDS: SILVER SULFADIAZINE 1% CR 400 GM JAR TOPICAL SCH (08:53)
--- NOTE | 2017-08-23 13:04 | HHI.PYPN ---
Subjective Chief Complaint: increase auditory or visual hallucinations noncompliance medication Remarks Pt seen and discussed with staff. He remains loud and intrusive. Self care is poor and insight into diabetes is poor, stating "that's just a little bit of diabetes". He is suspicious of medications but has been compliant. He has been praying and trying to get God to answer his questions on unit. No SI/HI Mental Status Examination Appearance: Appropriate, Disheveled Consciousness: Alert Orientation: Person, Place, Date/Time, Situation Motor Activity: Normal gait Speech: Rapid, Speech impediment (mildly dysarthric), Other (loud) Language: Adequate Fund of Knowledge: Adequate Attention and Concentration: Other (fair) Memory: Impaired Mood: Oppositional, Anxious, Irritable Affect: Other (increase range and intensity) Thought Process & Associations: Loose associations Thought Content: Bizarre thinking Hallucination Type: Auditory (vague with me today), Visual (vague with me today ) Delusion Type: Bizarre Suicidal Ideation: No Suicidal Plan: No Suicidal Intention: No Homicidal Ideation: No Homicidal Plan: No Homicidal Intention: No Insight: Poor Judgment: Poor Results Vitals/IOs Vital Signs Date Time Temp Pulse Resp B/P (MAP) Pulse Ox O2 Delivery O2 Flow Rate FiO2 08/23/17 06:21 145/69 (94) 08/23/17 06:20 97.2 85 16 97 Assessment & Plan Problem List: (1) Schizophrenia ICD Codes: F20.9 - Schizophrenia, unspecified Assessment & Plan Continue current tx plan. Estimated LOS: days Justification for Cont. Inpt. impairment in reality testing. Request HC Surrog/Guard Advoc?: No Problem Qualifiers (1) Schizophrenia: Qualified Codes: F20.0 - Paranoid schizophrenia Chioma Deluca MD Aug 23, 2017 13:04
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
[2017-08-23 18:16] VITALS: BP 144/73; PULSE 76; RESP 19; TEMP 99.8; O2SAT 97
[2017-08-23] MEDS: REMOVE OLD NICODERM (NICOTINE) PATCH T-DERMAL SCH (21:00)
[2017-08-24 06:09] VITALS: BP 170/81; PULSE 79; RESP 19; TEMP 96.6; O2SAT 96
[2017-08-24] MEDS: INSULIN ASPART SUPPLEMENTAL SCALE SQ SCH ×4 (08:00→20:20)
[2017-08-24] MEDS: SILVER SULFADIAZINE 1% CR 400 GM JAR TOPICAL SCH (09:00)
[2017-08-24] MEDS: NICOTINE 21 MG/24 HR PATCH T-DERMAL SCH (09:00)
[2017-08-24] MEDS: POVIDONE IODINE 10% SOLN 480 ML BTL TOPICAL SCH (09:00)
[2017-08-24] MEDS: metFORMIN HCL 500 MG TAB PO SCH ×2 (09:03→20:20)
[2017-08-24] MEDS: ENALAPRIL MALEATE 10 MG TAB PO SCH ×2 (09:03→20:21)
[2017-08-24] MEDS: ASPIRIN EC 81 MG TABEC PO SCH (09:03)
[2017-08-24] MEDS: DILTIAZEM-CD 240 MG CAP ER PO SCH (09:03)
[2017-08-24] MEDS: PALIPERIDONE ER 3 MG TAB PO SCH (09:04)
[2017-08-24 11:14] LABS: ALBUMIN 3.5 GM/DL (3.4-5.0); ALKALINE PHOSPHATASE 77 U/L (45-117); ALT (GPT) 28 U/L (12-78); AST (GOT) 29 U/L (15-37); BICARBONATE 25.8 MEQ/L (21.0-32.0); BLOOD UREA NITROGEN 12 MG/DL (7-18); CALCIUM 8.6 MG/DL (8.5-10.1); CHLORIDE 101 MEQ/L (98-107); CREATININE 1.07 MG/DL (0.60-1.30); GLOMERULAR FILTRATION RATE 84 ML/MIN (>89); GLUCOSE,RANDOM 175 MG/DL (74-106); SODIUM (NA) 134 MEQ/L (136-145); TOTAL BILIRUBIN ADULT 0.3 MG/DL (0.2-1.0); TOTAL PROTEIN 7.7 GM/DL (6.4-8.2)
--- NOTE | 2017-08-24 13:03 | HHI.PYPN ---
Subjective Chief Complaint: increase auditory or visual hallucinations noncompliance medication Remarks Pt seen and discussed with staff. He was irritable this morning but took medications without difficulty. Mood has improved as day has progressed. He remains intrusive but is responding to redirection. No aggression or agitation. No SI/HI Mental Status Examination Appearance: Appropriate, Disheveled Consciousness: Alert Orientation: Person, Place, Date/Time, Situation Motor Activity: Normal gait Speech: Speech impediment (mildly dysarthric), Other (loud but normal rate) Language: Adequate Fund of Knowledge: Adequate Attention and Concentration: Other (fair) Memory: Impaired Mood: Oppositional, Anxious, Irritable Affect: Other (increase range and intensity) Thought Process & Associations: Goal directed (but improving), Loose associations Thought Content: Bizarre thinking Hallucination Type: Visual (vague with me today), Other (less internal stimulation) Delusion Type: Bizarre Suicidal Ideation: No Suicidal Plan: No Suicidal Intention: No Homicidal Ideation: No Homicidal Plan: No Homicidal Intention: No Insight: Poor Judgment: Poor Results Labs Test 08/24/17 10:15 Blood Urea Nitrogen 12 MG/DL Creatinine 1.07 MG/DL Random Glucose 175 MG/DL Total Protein 7.7 GM/DL Albumin 3.5 GM/DL Calcium Level 8.6 MG/DL Alkaline Phosphatase 77 U/L Aspartate Amino Transf (AST/SGOT) 29 U/L Alanine Aminotransferase (ALT/SGPT) 28 U/L Total Bilirubin 0.3 MG/DL Sodium Level 134 MEQ/L Potassium Level 4.0 MEQ/L Chloride Level 101 MEQ/L Carbon Dioxide Level 25.8 MEQ/L Anion Gap 7 MEQ/L Estimat Glomerular Filtration Rate 84 ML/MIN Vitals/IOs Vital Signs Date Time Temp Pulse Resp B/P (MAP) Pulse Ox O2 Delivery O2 Flow Rate FiO2 08/24/17 06:09 96.6 79 19 170/81 (110) 96 Assessment & Plan Problem List: (1) Schizophrenia ICD Codes: F20.9 - Schizophrenia, unspecified Assessment & Plan Pt improving. Continue current tx plan. Estimated LOS: days Justification for Cont. Inpt. risk of decompesnation Request HC Surrog/Guard Advoc?: No Problem Qualifiers (1) Schizophrenia: Qualified Codes: F20.0 - Paranoid schizophrenia Chioma Deluca MD Aug 24, 2017 13:03
[2017-08-24 15:38] VITALS: BP 163/76; PULSE 82; RESP 18; TEMP 98; O2SAT 96
[2017-08-24] MEDS: REMOVE OLD NICODERM (NICOTINE) PATCH T-DERMAL SCH (20:23)
[2017-08-25 05:55] VITALS: BP 164/77; PULSE 84; RESP 16; TEMP 97.2; O2SAT 100
[2017-08-25] MEDS: INSULIN ASPART SUPPLEMENTAL SCALE SQ SCH ×2 (08:00→11:54)
[2017-08-25] MEDS: metFORMIN HCL 500 MG TAB PO SCH (08:54)
[2017-08-25] MEDS: ENALAPRIL MALEATE 10 MG TAB PO SCH (08:54)
[2017-08-25] MEDS: DILTIAZEM-CD 240 MG CAP ER PO SCH (08:54)
[2017-08-25] MEDS: PALIPERIDONE ER 3 MG TAB PO SCH (08:54)
[2017-08-25] MEDS: ASPIRIN EC 81 MG TABEC PO SCH (08:54)
[2017-08-25] MEDS: SILVER SULFADIAZINE 1% CR 400 GM JAR TOPICAL SCH (08:56)
[2017-08-25] MEDS: POVIDONE IODINE 10% SOLN 480 ML BTL TOPICAL SCH (08:56)
[2017-08-25] MEDS: NICOTINE 21 MG/24 HR PATCH T-DERMAL SCH (09:00)
[2017-08-25] MEDS ORDERED: ENAL10TA PO (10:27)
[2017-08-25] MEDS ORDERED: CARD240C6 PO (10:27)
[2017-08-25] MEDS ORDERED: SILV1CRE20 TOPICAL (10:27)
[2017-08-25] MEDS ORDERED: GLUCTAB PO (10:27)
[2017-08-25] MEDS ORDERED: ASPI81TA81 PO (10:27)
[2017-08-25] MEDS ORDERED: [UNRECOGNIZED DRUG - CODE] TOPICAL (10:27)
[2017-08-25] MEDS ORDERED: INVE3TAB2 PO (10:27)
--- NOTE | 2017-08-25 10:34 | HHI.DS ---
Psychiatry Discharge Summary Inpatient Psychiatric care?: Yes Advance Directive: No Reason Not Provided: does not have Mental Health AdvanceDirective: No Health Care Proxy: No Admission Admission Date Aug 17, 2017 at 14:58 Admission Diagnosis: (1) Schizophrenia ICD Code: F20.9 - Schizophrenia, unspecified Brief History A shunt is a 67-year-old Afro[place] male well-known to us from multiple prior contacts when back more than a decade. He is now a compliant with the fact team through [facility] act. Patient was admitted to [facility] on 08/16/17 under visit [id number] for treatment of hyponatremia now the metabolic issues. He is medically cleared, he was seen in consultation with Dr. Willoughby who recommended admission. Patient admitted to this unit. Patient seen on the unit with nurse Chely. Patient is alert fairly well oriented calm and cooperative if somewhat intrusive and loud and at times vaguely confusing. He did recognize me from many years ago. He states is a member of the fact team who monitor him daily. He says is an overall cooperative with medication. He states over the past few weeks she has had increase auditory or visual hallucinations of a somewhat threatening nature is somewhat hyper quaker today in the paranoid manner. Denies alcohol use is vague about use of marijuana. In any event he does know where he is. He states is willing to be cooperative with his medication and treatment. And would request to sign voluntary. At this time feel he has the capacity to sign voluntary thus I'll lift Carpenter act along the sign voluntary. We will counselor contact the fact team to get current medication list. Tobacco Use In Past 30 Days: 5 or More Cigarettes/Day Alcohol Use: Never Hospital Course Patient's hospital course was uneventful he was cooperative medication from day 1. His loud voice and intrusiveness did soften. He showed cooperation with the medication. He denies suicidality homicidality voices or visions. I also did talk the end of last week with the fact team physician who agreed with observation over the weekend with the addition of infiltrate of orally until is a proper time interval by reintroduction of the Invega sustain a monthly injection. Patient is done well over the weekend this time I feel his reached maximum benefit of this hospitalization thus will be discharged to fact team of Rx 1 month to follow-up fact team psychiatrist Results Blood Pressure 164 / 77 Vital Signs Date Time Temp Pulse Resp B/P (MAP) Pulse Ox O2 Delivery O2 Flow Rate FiO2 08/25/17 05:55 97.2 84 16 164/77 (106) 100 Laboratory Tests Test 08/24/17 10:15 Random Glucose 175 MG/DL (74-106) Sodium Level 134 MEQ/L (136-145) Estimat Glomerular Filtration Rate 84 ML/MIN (>89) Laboratory Results Test 08/18/17 09:40 Cholesterol Level 141 MG/DL (120-200) HDL Cholesterol 44.4 MG/DL (40.0-60.0) Hemoglobin A1c 7.8 % (4.3-6.0) LDL Cholesterol 79 MG/DL (0-99) Triglycerides Level 90 MG/DL (42-150) Summary of Procedures None done Pending results at discharge: No Medications # of Antipsychotic meds at D/C: 1 Appropriate >1 Antipsych meds?: 1 Approp Antipsych med options 1 - Minimum of three failed multiple trials of monotherapy. 2 - Documented plan to taper to monotherapy due to previous use of multiple meds OR cross-taper in progress at D/C. 3 - Documentation of augmentation of Clozapine. 4 - Justification other than those listed in allowable values 1-3, document here : Discharge Discharge Date: Aug 25, 2017 Discharge Diagnosis: (1) Schizophrenia ICD Code: F20.9 - Schizophrenia, unspecified Pt Condition on Discharge: Stable Discharge Disposition: Discharge Home Discharge Instructions Diet Instructions: As Tolerated, No Restrictions Activities you can perform: Regular-No Restrictions Scheduled Appointment: Joesph Corrales (follow-up fact team psychiatrist) Discharge Time > 30 minutes Mental Status Examination Appearance: Appropriate, Disheveled Consciousness: Alert Orientation: Person, Place, Date/Time, Situation Motor Activity: Normal gait Speech: Speech impediment (mildly dysarthric), Other (loud but normal rate) Language: Adequate Fund of Knowledge: Adequate Attention and Concentration: Other (fair) Memory: Impaired Mood: Oppositional, Anxious, Irritable Affect: Other (increase range and intensity) Thought Process & Associations: Goal directed (but improving), Loose associations Thought Content: Bizarre thinking Hallucination Type: Visual (vague with me today), Other (less internal stimulation) Delusion Type: Bizarre Suicidal Ideation: No Suicidal Plan: No Suicidal Intention: No Homicidal Ideation: No Homicidal Plan: No Homicidal Intention: No Insight: Poor Judgment: Poor Discharge/Advance Care Plan Health Problems: (1) Schizophrenia Goals to promote your health * To prevent worsening of your condition and complications * To maintain your health at the optimal level Directions to meet your goals Take your medications as prescribed Follow your dietary instruction Follow activity as directed Keep your appointments as scheduled Take your immunizations and boosters as scheduled If your symptoms worsen call your PCP, if no PCP go to Urgent Care Center or Emergency Room For 17/02 questions related to your inpatient stay or results of tests pending at discharge, please contact Dr. Yanick Tolbert at Smoking is Dangerous to Your Health. Avoid second hand smoking Problem Qualifiers (1) Schizophrenia: Qualified Codes: F20.0 - Paranoid schizophrenia Yanick Tolbert MD Aug 25, 2017 10:34
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
== END 2017-08-25 13:20 | disposition home or self-care (01) | DRG 885 ==
LOC: H270 14:58
PROVIDERS: ADMIT Psychiatry & Neurology Psychiatry; ATTEND Psychiatry & Neurology Psychiatry
DX: F20.0 Paranoid schizophrenia (principal); E87.1 Hypo-osmolality and hyponatremia; I10 Essential (primary) hypertension; R47.1 Dysarthria and anarthria; E78.5 Hyperlipidemia, unspecified; E11.9 Type 2 diabetes mellitus without complications; E66.9 Obesity, unspecified; H11.31 Conjunctival hemorrhage, right eye; F17.210 Nicotine dependence, cigarettes, uncomplicated; Z68.34 Body mass index [BMI] 34.0-34.9, adult; Z79.84 Long term (current) use of oral hypoglycemic drugs; Z83.3 Family history of diabetes mellitus; Z91.11 Patient's noncompliance with dietary regimen; Z91.14 Patient's other noncompliance with medication regimen
CPT/HCPCS: 80048; 80053; 80061; 82948; 83036; J1815; J2060